=== PATIENT | male | born 1975 | race Caucasian/White ===

== ENCOUNTER 2020-06-12 14:00 | Outpatient (RCR) | payer BC, SELFPAY ==
[2020-06-10 14:27] VITALS: BP 132/82; PULSE 73; RESP 12; O2SAT 98
--- NOTE | 2020-06-10 16:10 | MHC.PT.EP ---
[facility] [place] Office [place] [facility] [place] Office [address] Harika Corcoran [address] [phone] F: [phone] F: [phone] F: [phone] F: [phone] Physical Therapy Plan of Care Date of Evaluation: 06/10/20 Date of Surgery: NA Diagnosis: This is a 45 yo male presenting to skilled PT with a script for vertigo. Assessment: This is a 45 yo male presenting to skilled PT with a script for vertigo. Symptoms have returned last night 06/09, he was nauseas and vomited. He describes his symptoms as room spinning. Reports nausea and vomiting. These symptoms last minutes. He states that positions that provoke his symptoms include turning his head fast. His symptoms did not occur at rest. The patient has not had any changes in his vision or hearing. He does have some neck pain that is mild. His level of function is limited with housework, yardwork and driving. 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 Examination demonstrated (+) for dizziness and nystagmus for BPPV in all 6 canals. We did not assess balance today due to nausea and + nystagmus. He would benefit from reassessment of PT. Educated patient on causes of dizziness, balance systems and vestibular anatomy with marketing strategy lead. He is a good candidate for skilled PT 2x/wk for 5wks. Frequency and Duration: The patient will be seen 2x/wk for 5wks Short Term Goals: Care Home Goals: For the patient to be negative for nystagmus or reports of vertigo in all diagnostic positions bilaterally to resolution of BPPV in 4 weeks. Patient will report no LOB with ambulation For the patient to be able to functionally move in all planes and directions without provocation of dizziness to show return to PLOF. Treatment Plan: Modalities to reduce pain, spasms and effusion. Manual therapy to restore motion and function. Therapeutic exercise to improve strength and flexibility. Neuromuscular re-education for posture and balance. Therapeutic activities to return to functional activities of daily living. Please sign and return to therapist. Thank you for your referral.
--- NOTE | 2020-07-12 10:38 | MHC.PT.DC ---
[facility] [place] Office [place] Office [place] Office [address] Harika Corcoran [address] [phone] F: [phone] F: [phone] F: [phone] F: [phone] Physical Therapy Discharge Report Diagnosis: This is a 45 yo male presenting to skilled PT with a script for vertigo. Date of Surgery: NA Date of Evaluation: 06/10/20 Date of Discharge: 07/12/20 Treatments to Date: 2 Cancellations to Date: 0 No Shows to Date: 0 Discharge Status: Achieved Goals Improved Function Independent with HEP Discharge Summary: Patient returns reporting feeling much better, he was not dizzy Wednesday night or the following 2 days. Educated on HEP as needed and to call and cxl appointment on wednesday if symptoms still did not return. He returned to work without symptoms. When I assessed all canals he was negative for dizziness and nystagmus B in all 6 at the last tx session which was 30 days ago. DC'd chart after 30 days Electronically signed by: Yojana Cadena PT Please sign and return to therapist. Thank you for your referral.
== END 2020-07-12 10:37 | disposition home or self-care (01) ==
LOC: HO.PTCHIC 14:00
PROVIDERS: PCP Nurse Practitioner Family; Visit Provider Nurse Practitioner Family
DX: R42 Dizziness and giddiness (principal)
CPT/HCPCS: 95992; 97161; 97530

== ENCOUNTER → 2020-09-02 13:07 | Outpatient (BNVA) | payer BC, SELFPAY | PROVIDERS: PCP Nurse Practitioner Family; Visit Provider Orthopaedic Surgery | DX: Z76.89 Persons encountering health services in other specified circumstances (principal) ==

== ENCOUNTER 2020-09-26 13:02 | Day surgery (SDC) | payer BC, SELFPAY ==
[2020-09-26 13:14] VITALS: BP 134/79; PULSE 92; RESP 16; TEMP 36.6; O2SAT 98; BMI 34.9
--- NOTE | 2020-09-26 15:03 | MHC.SHP ---
Pre-Procedural Eval Section B Chief Complaint: RTCTS Allergies: Allergies Allergy/AdvReac Type Severity Reaction Status Date / Time No Known Allergies Allergy Verified 09/25/20 12:14 Plan I have reviewed the history and physical and performed a pertinent physical examination on my patient. No changes have occurred unless specified.
--- NOTE | 2020-09-26 16:24 | P.OP_ITS ---
Operative Note Operative Note Date of Service: 09/26/20 Narrative: Preop diagnosis: 1. Right the Carpal tunnel syndrome Postop diagnosis: 1. Right Carpal tunnel syndrome Procedure: 1. Right Carpal tunnel release Surgeon: Iris Amaro MD Anesthesia: local block using 1% lidocaine with epinephrine Findings: Thickened transverse carpal ligament particularly in the palm EBL: Less than 5 mL Specimens: None Complications: None Disposition: Brought to recovery room in stable condition Plan: Follow-up for 7-10 days for wound check and suture removal Indications: The patient is 45 years old, with right carpal tunnel syndrome that has been unresponsive to nonoperative management. The risks and benefits of operative treatment including but not limited to risk of damage to blood vessels, nerves, tendons, infection, persistent pain, persistent symptoms, or possible need for additional surgery were discussed with the patient and the patient wishes to proceed with surgery. Procedure: Once consent was obtained a local block was performed using a com bination of 1% lidocaine with epinephrine. The patient was then brought back to the operating suite and placed on the operative table in supine position. A tourniquet was applied to the proximal aspect of the right upper extremity and the limb was prepped and draped in a standard surgical fashion. Once assured that we had a good block, a 1.5 cm longitudinal incision was made centered over the right carpal tunnel. The incision was made through the skin to the subcutaneous tissues using a #15 blade. Dissection was made down to the level of the transverse carpal ligament with care being taken to protect the palmar cutaneous nerve. Once the transverse carpal ligament was clearly visualized, a longitudinal incision was made in the transverse carpal ligament 1st using a #15 blade, then using tenotomy scissors under direct visualization. Care was taken to look for and protect the motor branch of the median nerve when seen in this area. Once satisfied with our carpal tunnel release the wound was copiously irrigated with normal saline and hemostasis was obtained with a brief period of local pressure. The skin edges were reapproximated with some 5.0 nylon suture material and a sterile dressing was applied. The patient appears to have tolerated the procedure well and with no complications. All digits were well vascularized at the conclusion of the case.
[2020-09-26 16:46] VITALS: PULSE 88; RESP 16; TEMP 36.2; O2SAT 100
== END 2020-09-26 17:09 | disposition home or self-care (01) ==
PROVIDERS: PCP Nurse Practitioner Family; Visit Provider Orthopaedic Surgery
PROC: (CPT 64721; principal; 2020-09-26 14:20)
DX: G56.01 Carpal tunnel syndrome, right upper limb (principal); I10 Essential (primary) hypertension; Z79.899 Other long term (current) drug therapy
CPT/HCPCS: 64721

== ENCOUNTER → 2020-10-04 09:28 | Outpatient (BNVA) | payer BC, SELFPAY | PROVIDERS: PCP Nurse Practitioner Family; Visit Provider Physician Assistant ==

== ENCOUNTER → 2020-10-14 08:33 | Outpatient (BNVA) | payer BC, SELFPAY | PROVIDERS: PCP Nurse Practitioner Family; Visit Provider Orthopaedic Surgery ==

== ENCOUNTER 2020-10-22 12:38 | Day surgery (SDC) | payer BC, SELFPAY ==
[2020-10-22 13:40] VITALS: BMI 35.5
[2020-10-22 13:46] VITALS: BP 134/73; PULSE 66; RESP 18; TEMP 36.4; O2SAT 99
--- NOTE | 2020-10-22 15:43 | W.PM.OPN ---
Operative Note Operative Note Date of Service: 10/22/20 Narrative: Preop diagnosis: 1. Left Carpal tunnel syndrome Postop diagnosis: 1. Left Carpal tunnel syndrome Procedure: 1. Left Carpal tunnel release Surgeon: Iris Amaro MD Anesthesia: local block using 1% lidocaine with epinephrine Findings: Thickened transverse carpal ligament. EBL: Less than 5 mL Specimens: None Complications: None Disposition: Brought to recovery room in stable condition Plan: Follow-up for 7-10 days for wound check and suture removal Indications: The patient is 45 years old, with left carpal tunnel syndrome that has been unresponsive to nonoperative management. The risks and benefits of operative treatment including but not limited to risk of damage to blood vessels, nerves, tendons, infection, persistent pain, persistent symptoms, or possible need for additional surgery were discussed with the patient and the patient wishes to proceed with surgery. Procedure: Once consent was obtained a local block was performed using a combination of 1% lidocaine with epinephrine. The patient was then brought back to the operating suite and placed on the operative table in supine position. A tourniquet was applied to the proximal aspect of the left upper extremity and the limb was prepped and draped in a standard surgical fashion. Once assured that we had a good block, a 1.5 cm longitudinal incision was made centered over the left carpal tunnel. The incision was made through the skin to the subcutaneous tissues using a #15 blade. Dissection was made down to the level of the transverse carpal ligament with care being taken to protect the palmar cutaneous nerve. Once the transverse carpal ligament was clearly visualized, a longitudinal incision was made in the transverse carpal ligament 1st using a #15 blade, then using tenotomy scissors under direct visualization. Care was taken to look for and protect the motor branch of the median nerve when seen in this area. Once satisfied with our carpal tunnel release the wound was copiously irrigated with normal saline and hemostasis was obtained with a brief period of local pressure. The skin edges were reapproximated with some 5.0 nylon suture material and a sterile dressing was applied. The patient appears to have tolerated the procedure well and with no complications. All digits were well vascularized at the conclusion of the case.
--- NOTE | 2020-10-22 15:44 | MHC.SHP ---
Pre-Procedural Eval Section B Chief Complaint: carpal tunnel Allergies: Allergies Allergy/AdvReac Type Severity Reaction Status Date / Time No Known Allergies Allergy Verified 10/22/20 13:39 Plan I have reviewed the history and physical and performed a pertinent physical examination on my patient. No changes have occurred unless specified.
[2020-10-22 16:55] VITALS: BP 124/75; PULSE 80; RESP 16; TEMP 36.3; O2SAT 100
[2020-10-22 17:12] VITALS: BP 115/75; PULSE 81; RESP 17; O2SAT 99
[2020-10-22 17:15] VITALS: BP 118/76; PULSE 82; RESP 16; O2SAT 100
== END 2020-10-22 17:15 | disposition home or self-care (01) ==
PROVIDERS: PCP Nurse Practitioner Family; Visit Provider Orthopaedic Surgery
PROC: (CPT 64721; principal; 2020-10-22 13:40)
DX: G56.02 Carpal tunnel syndrome, left upper limb (principal); G56.22 Lesion of ulnar nerve, left upper limb; I10 Essential (primary) hypertension; Z79.899 Other long term (current) drug therapy
CPT/HCPCS: 64721

== ENCOUNTER → 2020-10-30 09:46 | Outpatient (BNVA) | payer BC, SELFPAY | PROVIDERS: PCP Nurse Practitioner Family; Visit Provider Orthopaedic Surgery ==

== ENCOUNTER → 2020-11-19 09:01 | Outpatient (BNVA) | payer BC, SELFPAY | PROVIDERS: PCP Nurse Practitioner Family; Visit Provider Orthopaedic Surgery ==

== ENCOUNTER 2020-12-04 08:30 | Outpatient (RCR) | payer BC, SELFPAY ==
--- NOTE | 2020-11-07 15:48 | MHC.OT.OEV ---
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 He recently underwent R CTR on 09/26/20 and L CTR 10/22/20 with gradual improvements in median nerve symptoms. 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 Enjoys working on cars/household maintenance. Hoping to begin playing Correlor. Living Situation, Family and/or Social Support: Lives with fianc? and animals Current Level of Function and Occupation Self Care, Employment, Leisure: Ind with ADLs and IADLs, with pain. OOW since CTR in September 2020. Not working on cars/ completing hobbies since B/L CTR due to pain and limitations. Sleep: No disturbances with sleep; not wearing resting hand splints since B/L CTR. Driving: Mild discomfort with holding a steering wheel Pain Assessment Pain Score: 2 Pain Scale Used: Numeric (0 - 10) Pain Location and Description: R small finger pain Aggravating Factors: Lifting heavier items >5 pounds Alleviating Factors: Takes ibuprofen, stretches out, uses heat for pain Skin and Soft Tissue Assessment Skin and Soft Tissue: Scar Tissue Comments: R small finger posturing in flexion at rest; no muscle wasting noted in B/L thenar or hypothenar Healing L CTR incision, closed without sutures present with mild redness; Healed R CTR scar Nerve assessment Ulnar Nerve: Right Impaired Median Nerve: WFL Radial Nerve: Comments: (-) Froment's sign B/L Slight weakness with resisted R pinky adduction R Tinel's at ulnar wrist and elbow (-) mild tenderness at both sites Sensory Assessment Temperature: WFL Light Touch: B/L Impaired Proprioception: Vibration: Comments: [place] Andres: R thumb 4.31 (diminished light touch), IF, MF, RF, SF 3.61 (normal); L digits 3.61 (normal), L medial RF 4.31 (diminished light touch) Continue to assess with ongoing rx Edema Assessment Upper Extremity: WNL Lower Extremity: Comments: R wrist crease: 19.5 cm, MP circumference: 22.5 cm L wrist crease: 19.2 cm, MP circumference: 22.2 cm Dexterity Assessment Dexterity: B/L Impaired Comments: R hand 30.36 sec (moderately functional) L hand 29.52 + 1 drop, 39.52 sec (moderately functional) Special Tests Comments: (-) Froments sign B/L'ly AROM(PROM) Strength Elbow Flexion: Extension: Pronation: Supination: Comments: WFL Flexion: Extension: Pronation: Supination: Comments: Wrist Flexion: R 60, L 55 Extension: R 65, L 60 Ulnar Deviation: Radial Deviation: Comments: Flexion: Extension: Ulnar Deviation: Radial Deviation: Comments: Digits Index MCP: PIP: DIP: Long MCP: PIP: DIP: Ring MCP: PIP: DIP: Small MCP: PIP: DIP: Comments: WFL Gross Grasp: R 85 lbs, L 90 lbs Lateral Pinch: R 21, L 24 Two-Point Pinch: R 14, L 25 Three-Jaw Bennie: R 12, L 12 Comments: grasp pain in R ulnar wrist, R pain through carpal tunnel with lateral pinch Patient Education Primary Language: Latvian Real Estate Acquisition Analyst Required: No Current Knowledge: Understands information with skills for self-management Teaching Method: Demonstration Handouts Education Needs Identified on Evaluation: ADL's Disease Information Equipment Use Exercise Pain How did patient/family demonstrate learning? Patient demonstrates Patient verbalizes Barriers to Learning: None Readiness for Learning: Accepting Who was educated? Patient Comments: Plan of Care Assessment: Quentin is a 45 y/o male who has been experiencing B/L hand pain and paresthesia. He underwent B/L CTR with Dr. Amaro, which since has relieved symptoms in the median nerve distribution, however his symptoms in his small finger continue to cause pain and paresthesia. 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 He reports the pain in his R hand/small finger to be mild, with most pain during heavier lifting tasks or digit flexion and extension. At rest his R small finger postures in a flexed position. He reports feeling clumsy in both hands. He reports the R small finger has slowly been improving since his CTR, but is hopeful for full recovery before returning to work. He would benefit from skilled OT to address these limitations 2x/week for 4 weeks. STG Duration: 4 weeks Short Term Goals: Ind HEP Ind orthosis use and wear Ind activity modification and elbow protection Functional dexterity test grossly equal B/L'ly Improve R grasp to >100 pounds Report minimal pain with heavy lifting in the R hand >50 pounds Demo proper body mechanics with lifting tasks and work related activities Quick DASH <10 LTG Duration: see above Usp Goals: see above Frequency and Duration: The patient will be seen 2x/week for 4 weeks Treatment Plan: Therapeutic Exercise Therapeutic Activity Home Exercise Program Splinting Neuro Re-ed Patient Education Desensitization/Sensory Re-ed Edema Control ADL Training Ultrasound NMES Iontophoresis Paraffin Fluidotherapy MHP Cold Packs Joint Mobilization Soft Tissue Mobilization Kinesiotaping Electronically Signed By: Michelle Connolly OT/s Reviewed/agree with student documentation: Yes Therapist: Oly Gregory OTR/L Please sign and return to therapist, Thank you for your referral.
--- NOTE | 2020-12-05 08:07 | MHC.OT.DC ---
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 HE PARTICIPATED IN WORK CONDITIONING TASKS AND PLANS TO RETURN TO WORK NEXT WEEK. NO FURTHER OT WARRANTED AT THIS TIME. HE HAS GOOD UNDERSTANDING OF HIS HEP AND SELF MANAGEMENT. D/C OT SERVICES. Electronically Signed By: MILAN MOYER OTR/L Reviewed/agree with student documentation: N/A Therapist: Please Sign and return to therapist, thank you for your referral.
== END 2020-12-05 08:08 | disposition other institution (70) ==
LOC: HO.OT 08:30
PROVIDERS: PCP Nurse Practitioner Family; Visit Provider Orthopaedic Surgery
DX: G56.21 Lesion of ulnar nerve, right upper limb (principal); G56.22 Lesion of ulnar nerve, left upper limb; Z98.890 Other specified postprocedural states
CPT/HCPCS: 97035; 97110; 97112; 97140; 97166; 97530; 97760

== ENCOUNTER 2021-08-27 08:35 | Outpatient (REF) | payer BC, SELFPAY ==
[2021-08-27 11:25] LABS: Appearance Urine CLEAR; Color Urine YELLOW; Glucose Urine UA NEG (NEG); Leukocyte Esterase Urine NEG (NEG); Nitrite Urine NEG (NEG); Urine Blood NEG (NEG); Urine Ketones NEG (NEG); Urine Protein NEG (NEG-TRACE)
[2021-08-27 11:53] LABS: Alanine Aminotransferase 54 U/L (0-40); Albumin Level 4.4 g/dL (3.5-5.0); Alkaline Phosphatase 56 U/L (39-117); Anion Gap 12 (12-20); Aspartate Amino Transferase 33 U/L (5-37); Bilirubin Total 0.4 mg/dL (0.0-1.0); Blood Urea Nitrogen 21 mg/dL (9-16); Calcium 10.5 mg/dL (8.4-10.2); Carbon Dioxide 26 mmol/L (22-29); Chloride 103 mmol/L (96-108); Cholesterol 256 mg/dL; Estimated Glomerular Filt Rate > 60; Glucose Fasting 84 mg/dL (60-99); HDL Cholesterol 78 mg/dL; LDL Cholesterol Calculated 159 mg/dl; Potassium 4.1 mmol/L (3.3-5.1); Sodium 137 mmol/L (135-145); Total Protein 7.5 g/dL (6.5-8.0); Triglycerides 99 mg/dL
[2021-08-27 12:12] LABS: TSH reflex Free T4 1.61 uIU/mL (0.32-4.0)
== END 2021-08-27 08:36 | disposition home or self-care (01) ==
LOC: HO.HMGCLDS 08:35
PROVIDERS: PCP Nurse Practitioner Family; Visit Provider Nurse Practitioner Family
DX: Z00.00 Encounter for general adult medical examination without abnormal findings (principal)
CPT/HCPCS: 36415; 80053; 80061; 81003; 84443

== ENCOUNTER 2022-08-31 13:48 | Outpatient (REF) | payer BC, SELFPAY ==
[2022-08-31 16:40] LABS: MANUAL DIFF FLAG NO
[2022-08-31 16:44] LABS: Basophils Absolute Auto 0.1 X10*3/uL (0.0-0.2); Basophils Percent Auto 0.6 % (0-2); Eosinophils Absolute Auto 0.1 X10*3/uL (0.0-0.4); Eosinophils Percent Auto 1.3 % (0-4); Hematocrit 44.7 % (42.0-52.0); Hemoglobin 14.6 g/dl (14.0-18.0); Imm Gran Abs Auto 0.05 X10*3/uL (0.00-0.03); Imm Gran Pct Auto 0.5 % (0.0-0.4); Lymphocytes Absolute Auto 1.5 X10*3/uL (1.2-4.9); Lymphocytes Percent Auto 14.8 % (20-40); Mean Corpuscular HGB Conc 32.7 g/dl (31.0-36.0); Mean Corpuscular Hemoglobin 30.1 pg (27.0-33.0); Mean Corpuscular Volume 92.2 fL (80.0-98.0); Mean Platelet Volume 9.4 fL (9.4-12.4); Monocytes Absolute Auto 1.1 X10*3/uL (0.1-1.2); Monocytes Percent Auto 10.5 % (2-11); Neutrophils Absolute Auto 7.3 x10*3/uL (2.0-8.3); Neutrophils Percent Auto 72.3 % (45-73); Platelet Count 354 X10*3/uL (160-400); Red Blood Count 4.85 X10*6/uL (4.60-5.80); Red Cell Distribution Width 13.2 % (11.0-16.0)
[2022-08-31 17:04] LABS: Alanine Aminotransferase 72 U/L (0-40); Albumin Level 4.3 g/dL (3.5-5.0); Alkaline Phosphatase 62 U/L (39-117); Anion Gap 10 (12-20); Appearance Urine Clear; Aspartate Amino Transferase 32 U/L (5-37); Bilirubin Total 0.5 mg/dL (0.0-1.0); Blood Urea Nitrogen 11 mg/dL (9-16); Calcium 10.1 mg/dL (8.4-10.2); Carbon Dioxide 29 mmol/L (22-29); Chloride 102 mmol/L (96-108); Cholesterol 256 mg/dL; Color Urine Yellow; Estimated Glomerular Filt Rate > 60; Glucose Fasting 89 mg/dL (60-99); Glucose Urine UA Negative (Negative); HDL Cholesterol 73 mg/dL; LDL Cholesterol Calculated 150 mg/dl; Leukocyte Esterase Urine Negative (Negative); Nitrite Urine Negative (Negative); PH 6.5 (5.0-9.0); Potassium 4.5 mmol/L (3.3-5.1); Sodium 136 mmol/L (135-145); Total Protein 7.2 g/dL (6.5-8.0); Triglycerides 169 mg/dL; Urine Blood Negative (Negative); Urine Ketones Negative (Negative); Urine Protein Negative (Neg-Trace)
[2022-08-31 17:22] LABS: TSH reflex Free T4 1.52 uIU/mL (0.32-4.0)
== END 2022-08-31 13:49 | disposition home or self-care (01) ==
LOC: HO.HMGCLDS 13:48
PROVIDERS: PCP Nurse Practitioner Family; Visit Provider Nurse Practitioner Family
DX: I10 Essential (primary) hypertension (principal); E78.5 Hyperlipidemia, unspecified
CPT/HCPCS: 36415; 80053; 80061; 81003; 84443; 85025

== ENCOUNTER → 2022-10-14 07:32 | Outpatient (BNVA) | payer BC, SELFPAY | PROVIDERS: PCP Nurse Practitioner Family; Referring Provider Nurse Practitioner Family; Visit Provider Physician Assistant | DX: Z13.89 Encounter for screening for other disorder (principal) ==

== ENCOUNTER 2023-01-28 13:16 | Day surgery (SDC) | payer BC, SELFPAY ==
--- NOTE | 2023-01-27 12:56 | P.CONAN_ITS ---
Documented by User: Milagro Cotter NP 01/27/23 12:57 HPI - Anesthesia Eval Consult details Narrative: 47yo M for Colonoscopy PMFSH Active Problems Active Problems: All Active Problems (Updated 10/14/22 @ 08:00 by Malu Soto PA-C) Screening for colon cancer (Acute) Poison edie (Acute) Hypertension (Acute) Serum calcium elevated (Acute) Dyslipidemia (Acute) Physical exam (Acute) Poison edie (Acute) S/P carpal tunnel release (Acute) Cubital tunnel syndrome on right (Acute) Cubital tunnel syndrome on left (Acute) Carpal tunnel syndrome of right wrist (Acute) Carpal tunnel syndrome of left wrist (Acute) Vertigo (Acute) Past Medical History Medical History Dyslipidemia Hypercholesteremia Hypertension Tibial tendonitis, posterior Family History Family History Other Mental health disorder Substance use disorder Surgical History Surgical History History of carpal tunnel release (~09/26/20) History of cholecystectomy Social History Social History Housing: House Patient Tobacco Use Status: Never used Tobacco e-Cigarette/Vaping Use: Never Used Second Hand Smoke Exposure: No Are you DNR?: No Advance Directives: No Advance Directives Information Provided: Yes Nutrition Risks: No Nutritional Risk Current occupational status: employed 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 Cognitive needs: No Hearing needs: No Vision needs: No Meds Allergies Allergy/AdvReac Type Severity Reaction Status Date / Time No Known Allergies Allergy Verified 09/02/22 07:42 Home Medications Medication Instructions Recorded Confirmed Last Taken Type dextroamphetamine-amphetamine ER 1 cap PO QAM 09/02/22 09/02/22 Unknown History 20 mg 24hr capsule,extend release (Adderall XR) escitalopram oxalate 10 mg tablet 10 mg PO DAILY 09/02/22 09/02/22 Unknown History Exam Exam Date and Time: January 27, 2023 125 Pertinent Lab Results Pertinent Lab Results: Laboratory Tests 08/31/22 08/31/22 13:57 13:57 WBC 10.0 Hgb 14.6 Hct 44.7 Plt Count 354 Sodium 136 Potassium 4.5 Chloride 102 Carbon Dioxide 29 BUN 11 Creatinine 0.78 Assessment and Plan Assessment Anesthesia Assessment: Chart Reviewed Documented by User: Kaveh Medina MD 01/28/23 14:09 [facility] Past Medical History Medical History Dyslipidemia Hypercholesteremia Hypertension Tibial tendonitis, posterior Narrative: Denies JAMES, but he does snore. 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 Assessment and Plan Assessment Anesthesia Assessment: Anesthesia Plan Discussed Final Anesthetic Review Family History of Problems with Anesthesia: No History of Problems with Anesthesia: No NPO: Yes ASA Class: II Final Preanesthetic Review: No Changes in Pt Med Stat, Meds/Allgs Chart Reviewed, Consent Obtained/Reviewed and Anes Risks/Benef Reviewed Patient Risk: Intermediate Procedure Risk: Low Anesthetic Plan Anesthetic Plan: MAC: and Agree w/ Assess. and Plan Disposition: Standard PACU
[2023-01-28 13:29] VITALS: BMI 36.3
[2023-01-28] MEDS: Lactated Ringers 1,000 ML 100 ML IVCONT (13:33)
[2023-01-28 13:47] VITALS: BP 154/96; PULSE 78; RESP 18; TEMP 36.6; O2SAT 98
--- NOTE | 2023-01-28 14:05 | MHC.SHP ---
Pre-Procedural Eval Section A Date of Service: 01/28/23 Section B Chief Complaint: screening for malignant neoplasm of colon Relevant Family History (Specify if Yes): No Relevant Social History: None Present Medications: see Short Stay Collaborative assessment Medical History: Significant History (Dyslipidemia Hypercholesteremia Hypertension Tibial tendonitis, posterior) History of Previous Operations: Relevant previous surgery/procedure and date(s) (carpal tunnel ) Allergies: Allergies Allergy/AdvReac Type Severity Reaction Status Date / Time No Known Allergies Allergy Verified 09/02/22 07:42 Review of Systems Sugical H&P ROS: Negative: Constitution, Cardiovascular, Respiratory, Neurological, Psychiatric, Hem-Onc, Allergic/Immunologic, Gastrointestinal, Genitourinary, Musculoskeletal, Integumentary, Endocrine and Eyes/Ears/Nose/Throat Exam Surgical H&P Exam: Normal: HEENT, Normal: Heart, Normal: Lungs, Normal: Extremities, Normal: Abdomen, Normal: Skin and Normal: Neurological Plan Diagnosis/Plan: Unchanged I have reviewed the history and physical and performed a pertinent physical examination on my patient. No changes have occurred unless specified. Time Spent With Patient Time: Total time managing care of this patient today ____ minutes.
--- NOTE | 2023-01-28 14:41 | W.PM.OPN ---
Operative Note Operative Note Date of Service: 01/28/23 Narrative: Operative Information Procedure Description: Colonoscopy Indication: screening Anesthesia: MAC COLONOSCOPY Instrument: Olympus variable stiffness pediatric scope 190L Colonoscopy Monitoring: Vital signs and clinical assessment, continuous EKG monitoring, Pulse oximetry, Carbon Dioxide monitoring and blood pressure monitoring were done throughout the procedure. Colon withdrawal time was 8 minutes. Procedure: The patient was placed in the left lateral decubitis position and pre-procedure medications were administered. After a digital rectal examination of the ano-rectum, the video colonoscope was inserted into the rectum and advanced through the colon to the cecum/TI. The colonoscope was slowly withdrawn in a retrograde panoramic fashion and the colon mucosa was carefully examined including a retroflexed view of the rectum. Findings and interventions are described below. Procedure Difficulty: easy Findings: Terminal Ileum-normal Cecum: 5-7 mm sessile polyp removed with cold snare Ascending Colon: normal Transverse Colon -normal Descending Colon:normal Sigmoid Colon: normal Rectum: Retroflexion with small internal hemorrhoids, grade I Anorectum - normal Colon preparation: [place] Bowel Preparation Scale Right colon; 2 Transverse colon: 2 Left colon; 2 (0 = Unprepared colon segment with mucosa not seen due to solid stool that cannot be cleared. 1 = Portion of mucosa of the colon segment seen, but other areas of the colon segment not well seen due to staining, residual stool and/or opaque liquid. 2 = Minor amount of residual staining, small fragments of stool and/or opaque liquid, but mucosa of colon segment seen well. 3 = Entire mucosa of colon segment seen well with no residual staining, small fragments of stool or opaque liquid) Impression and Post Procedure Diagnosis: polyp internal hemorrhoids Plan: High fiber diet leaflet Avoid straining at stool, epsom salts and sitz bath, anusol supps or cream Repeat Colonoscopy in 5-7 years if adenomatous polyp, 10 yrs if lymphoid tissue etc or earlier if clinically indicated Above findings were reviewed with the patient and relevant handouts were provided if indicated.
[2023-01-28 14:44] VITALS: BP 141/86; PULSE 75; RESP 16; TEMP 36.7; O2SAT 98
[2023-01-28 14:59] VITALS: BP 152/85; PULSE 64; RESP 18; TEMP 37.2; O2SAT 99
== END 2023-01-28 15:52 | disposition home or self-care (01) ==
PROVIDERS: PCP Nurse Practitioner Family; Visit Provider Internal Medicine Gastroenterology
PROC: 0DJD8ZZ Inspection of Lower Intestinal Tract, Via Natural or Artificial Opening Endoscopic (ICD-10-PCS; CPT 45378; principal; 2023-01-28 14:30)
DX: Z12.11 Encounter for screening for malignant neoplasm of colon (principal); K63.5 Polyp of colon; K64.0 First degree hemorrhoids; I10 Essential (primary) hypertension; E78.00 Pure hypercholesterolemia, unspecified; Z79.899 Other long term (current) drug therapy; Z90.49 Acquired absence of other specified parts of digestive tract
CPT/HCPCS: 45385; 88305

== ENCOUNTER → 2023-02-11 08:43 | Outpatient (BNVA) | payer BC, SELFPAY | PROVIDERS: PCP Nurse Practitioner Family; Visit Provider Physician Assistant ==

== ENCOUNTER 2023-03-02 07:57 | Outpatient (AMB) | payer BC, SELFPAY ==
[2023-03-02 08:05] VITALS: BP 128/90; PULSE 78; O2SAT 98; BMI 37.6
--- NOTE | 2023-03-02 08:05 | A.OFFPC_ITS ---
Vital Signs 03/02/23 08:05 Height 5 ft 11 in Weight 269 lb 6 oz BMI 37.6 BP 128/90 H Blood Pressure Location Lt brachial Position Sitting Pulse 78 Pulse Source Pulse Oximeter Pulse Oximetry (%) 98 Oxygen Delivery Method Room Air Intake Visit Reasons: 6 Month follow up Allergies No Known Allergies Allergy (Verified 03/02/23 08:25) Medication List - Last Reconciled 03/02/23 by TOVA Sam dextroamphetamine-amphetamine 20 mg ER (Adderall XR) 1 cap PO QAM escitalopram oxalate 10 mg PO DAILY hydrochlorothiazide 25 mg PO DAILY lisinopril 20 mg PO DAILY rosuvastatin 10 mg PO DAILY 90 days Tobacco use date assessed: 03/02/23 Dental Screening Dental Screen Date: 03/02/23 Did you have a dental visit in the last 12 months?: No Did you have a dental problem in the last 6 months where you did not have access to dental care?: No Was dental information given to patient?: Patient has dentist HPI 6 Month follow up HPI Details Dyslipidemia: Pt was started on rosuvastatin 10mg previously. He has not had repeat labs, will reorder. HTN: Blood pressure is managed with hydrochlorothiazide 25mg and lisinopril 20mg. Will have pt monitor his blood pressure at home and record readings. Denies chest pain, shortness of breath, headache, dizziness, and blurred vision. 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 Vince Pate, Krupa Glass, Roc Londono and colleagues, with an educational omega from [employer]. Review of Systems Const Reports as per HPI Physical exam (Primary Care) Vital Signs: Last Vital Signs Pulse 78 03/02/23 08:05 BP 128/90 H 03/02/23 08:05 Pulse Ox 98 03/02/23 08:05 Oxygen Delivery Method Room Air 03/02/23 08:05 BMI result Body Mass Index 37.6 Tobacco/Smoking Status: Tobacco use Status Tobacco use date assessed 03/02/23 03/02/23 08:11 Patient Tobacco Use Status Never used Tobacco 03/02/23 08:07 e-Cigarette/Vaping Use Never Used 03/02/23 08:07 Thrive Assessment: Date of Thrive Assessment Date Thrive assessed 09/02/22 03/02/23 08:07 Const General: cooperative Nutritional Appearance: obese Orientation/consciousness: patient oriented x3 Resp Effort & Inspection: normal respiratory effort Auscultation: clear to auscultation bilaterally Cardio Rate: regular rate Rhythm: regular rhythm Heart sounds: S1 normal heart sound present and S2 normal heart sound present Neuro General: patient oriented x3 Extrem Right lower extremity: no edema Left lower extremity: no edema Psych Appearance: grossly normal Mental Status: mental status grossly normal Speech and movement: Normal speech and movement present Affect: normal affect Attitude: cooperative Thought process: Normal thought process present Thought content: Normal thought content present Insight: Good insight present (Psych) Judgement: Good judgement present (Psych) Assessment and Plan Assessment & Plan (1) Hypertension: Code(s): I10 - Essential (primary) hypertension Plan: Monitor BP at home (2) Dyslipidemia: Code(s): E78.5 - Hyperlipidemia, unspecified Plan The patient agreed to the use of a dental assistant medical assistant for this encounter. Scribed for TOVA Amos by Nicole Corona dental assistant medical assistant, on 03/02/2023 at 08:10 EST. Orders: Orders Comprehensive [place]. Panel Fast Today E78.5 - Hyperlipidemia, unspecified Lipid Panel Today E78.5 - Hyperlipidemia, unspecified Complete Blood Count Auto Diff Today E78.5 - Hyperlipidemia, unspecified Coding Level of Care Code Est Pt Level 3 (55220) Diagnoses Hypertension I10 Dyslipidemia E78.5
== END 2023-03-02 08:20 | disposition home or self-care (01) ==
PROVIDERS: Visit Provider Nurse Practitioner Family
DX: I10 Essential (primary) hypertension (principal); E78.5 Hyperlipidemia, unspecified
CPT/HCPCS: 99213

== ENCOUNTER 2024-01-03 09:35 | Outpatient (REF) | payer BC, SELFPAY ==
[2024-01-03 13:27] LABS: MANUAL DIFF FLAG NO
[2024-01-03 13:53] LABS: Basophils Absolute Auto 0.1 X10*3/uL (0.0-0.2); Basophils Percent Auto 1.4 % (0-2); Eosinophils Absolute Auto 0.2 X10*3/uL (0.0-0.4); Eosinophils Percent Auto 2.2 % (0-4); Hematocrit 43.7 % (42.0-52.0); Hemoglobin 14.5 g/dl (14.0-18.0); Imm Gran Abs Auto 0.03 X10*3/uL (0.00-0.03); Imm Gran Pct Auto 0.4 % (0.0-0.4); Lymphocytes Absolute Auto 1.8 X10*3/uL (1.2-4.9); Lymphocytes Percent Auto 24.2 % (20-40); Mean Corpuscular HGB Conc 33.2 g/dl (31.0-36.0); Mean Corpuscular Hemoglobin 30.3 pg (27.0-33.0); Mean Corpuscular Volume 91.2 fL (80.0-98.0); Mean Platelet Volume 9.4 fL (9.4-12.4); Monocytes Percent Auto 13.7 % (2-11); Neutrophils Absolute Auto 4.2 x10*3/uL (2.0-8.3); Neutrophils Percent Auto 58.1 % (45-73); Platelet Count 316 X10*3/uL (160-400); Red Blood Count 4.79 X10*6/uL (4.60-5.80); Red Cell Distribution Width 13.2 % (11.0-16.0); White Blood Count 7.2 X10*3/uL (4.8-10.8)
[2024-01-03 14:16] LABS: Alanine Aminotransferase 52 U/L (0-40); Albumin Level 4.3 g/dL (3.5-5.0); Alkaline Phosphatase 56 U/L (39-117); Anion Gap 16 (12-20); Aspartate Amino Transferase 33 U/L (5-37); Bilirubin Total 0.4 mg/dL (0.0-1.0); Blood Urea Nitrogen 12 mg/dL (9-16); Calcium 10.3 mg/dL (8.4-10.2); Carbon Dioxide 26 mmol/L (22-29); Chloride 103 mmol/L (96-108); Cholesterol 206 mg/dL (<200); Estimated Glomerular Filt Rate > 60; Glucose Fasting 94 mg/dL (60-99); HDL Cholesterol 68 mg/dL (>40); LDL Cholesterol Calculated 120 mg/dL (<100); Potassium 5.1 mmol/L (3.3-5.1); Sodium 140 mmol/L (135-145); Total Protein 7.8 g/dL (6.5-8.0); Triglycerides 91 mg/dL (<150)
== END 2024-01-03 09:36 | disposition home or self-care (01) ==
LOC: HO.HMGCLDS 09:35
PROVIDERS: PCP Nurse Practitioner Family; Visit Provider Nurse Practitioner Family
DX: E78.5 Hyperlipidemia, unspecified (principal)
CPT/HCPCS: 36415; 80053; 80061; 85025

== ENCOUNTER 2024-01-10 11:58 | Outpatient (AMB) | payer BC, SELFPAY ==
--- NOTE | 2024-01-10 12:33 | MHC.PC.OV ---
Vital Signs 01/10/24 12:36 Height 5 ft 11 in Weight 278 lb BMI 38.8 BP 122/80 Blood Pressure Location Rt brachial Position Sitting Pulse 71 Pulse Source Pulse Oximeter Pulse Oximetry (%) 97 Oxygen Delivery Method Room Air Intake Visit Reasons: Annual PE Intake Note: Patient here for physical exam. Colonoscopy:2022 Allergies No Known Allergies Allergy (Verified 01/10/24 12:38) Medication List - Last Reconciled 01/10/24 by TOVA Sam dextroamphetamine-amphetamine 20 mg ER (Adderall XR) 1 cap PO QAM escitalopram oxalate 10 mg PO DAILY hydrochlorothiazide 25 mg PO DAILY lisinopril 20 mg PO DAILY rosuvastatin 10 mg PO DAILY 90 days Tobacco use date assessed: 01/10/24 Dental Screening Dental Screen Date: 01/10/24 Did you have a dental visit in the last 12 months?: No Did you have a dental problem in the last 6 months where you did not have access to dental care?: No Was dental information given to patient?: Patient has dentist HPI Annual PE HPI Details Pt is here for a PE. Labs were already performed. Colon screen is up to date. 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 1. Little interest or pleasure in doing things: not at all 2. Feeling down, depressed, or hopeless: not at all 3. Trouble falling or staying asleep, or sleeping too much: not at all 4. Feeling tired or having little energy: not at all 5. Poor appetite or overeating: not at all 6. Feeling bad about yourself - or that you are a failure or have let yourself or your family down: not at all 7. Trouble concentrating on things, such as reading the newspaper or watching television: not at all 8. Moving or speaking so slowly that other people could have noticed. Or the opposite - being so fidgety or restless that you have been moving around a lot more than usual: not at all 9. Thoughts that you would be better off or of hurting yourself in some way: not at all Total score: 0 Depression Screening Interpretation: Negative Depression Screening Done: Yes 86196 - PHQ-9 Billing: Yes Source: Developed by Drs. Vince Pate, Krupa Glass, Roc Londono and colleagues, with an educational omega from [employer] Thrive Questionnaire Date Thrive assessed: 01/10/24 I am a: Patient What is your living situation today?: I have a steady place to live Within the past 12 months, did the food you bought not last and you didn't have the money to get more?: Never true Within the past 12 months, did you worry whether your food would run out before you got money to buy more?: Never true Do you have trouble paying for medicines?: No Do you have trouble getting transportation to medical appointments?: No Do you have trouble paying your heating and electricity bill?: No Do you have trouble taking care of your child, family member or friend?: No Do you have trouble with day-to-day activities such as bathing, preparing meals, shopping, managing finances, etc.?: No Are you currently unemployed and looking for a job?: Yes Are you interested in more education?: No Currently or been in a relationship where the following occur: I choose not to answer this question THRIVE Score: 0 AUDIT C Alcohol Use Questionnaire (AUDIT-C) 1. How often do you have a drink containing alcohol?: Monthly or less 2. How many drinks containing alcohol do you have on a typical day when you are drinking?: 1 or 2 3. How often do you have six or more drinks on one occasion?: Never Total Score: 1 Score Reviewed/Action Taken: No RENE-7 AMB Questionnaire RENE-7 Date RENE - 7 assessed: 01/10/24 Feeling nervous, anxious, or on edge: 0 = Not at all Not being able to stop or control worryin = Not at all Worrying too much about different things: 0 = Not at all Trouble relaxin = Not at all Being so restless that it is hard to sit still: 0 = Not at all Becoming easily annoyed or irritable: 0 = Not at all Feeling afraid as if something awful might happen: 0 = Not at all Total RENE-7 score (0-4 normal; 5-9 mild; 10-14 moderate; 15-21 severe): 0 Source: Developed by Drs. Vince Pate, Krupa Glass, Roc Londono and colleagues, with an educational omega from [employer] RENE-7 Assessment Billing RENE-7 Assessment Tool: RENE-7 Assessment 49802 Review of Systems Const Denies chills and Denies fever(s) Eyes Denies blurry vision ENT Denies vertigo, Denies dizziness and Denies sore throat Card Denies chest pain at rest, Denies chest pain with activity, Denies diaphoresis, Denies dyspnea and Denies dyspnea on exertion Resp Denies cough, Denies dyspnea, Denies dyspnea on exertion and Denies wheezing GI Denies abdominal pain, Denies melena, Denies hematochezia, Denies constipation, Denies diarrhea and Denies loose stools Denies hematuria Musc Denies numbness and Denies tingling Skin/Breast Denies lesions Neuro Denies vertigo, Denies dizziness, Denies numbness and Denies tingling Psych Denies anxiety, Denies depression, Denies homicidal ideation, Denies suicidal ideation and Denies other (substance abuse) Aller/Immun Denies wheezing Physical exam (Primary Care) Vital Signs: Last Vital Signs Pulse 71 01/10/24 12:36 BP 122/80 01/10/24 12:36 Pulse Ox 97 01/10/24 12:36 Oxygen Delivery Method Room Air 01/10/24 12:36 BMI result Body Mass Index 38.8 Tobacco/Smoking Status: Tobacco use Status Tobacco use date assessed 01/10/24 01/10/24 12:39 Patient Tobacco Use Status Never used Tobacco 01/10/24 12:35 e-Cigarette/Vaping Use Never Used 01/10/24 12:35 PHQ-9: PHQ-9 Score PHQ-9: Total score 0 01/10/24 12:41 Depression Screening Interpretation: Negative Thrive Assessment: Date of Thrive Assessment Date Thrive assessed 01/10/24 01/10/24 12:41 Currently or been in a relationship where the following occur: I choose not to answer this question Const General: cooperative Nutritional Appearance: obese Orientation/consciousness: patient oriented x3 HENMT Head: Yes normal to inspection, Yes normocephalic and Yes atraumatic Ears: TM's normal bilaterally Eyes General: appearance normal, both eyes and all related structures Alignment and Position: alignment normal and position normal Neck Neck: Yes normal visual inspection and Yes no lymphadenopathy Thyroid: Thyroid normal Resp Effort & Inspection: normal respiratory effort Auscultation: clear to auscultation bilaterally Cardio Rate: regular rate Rhythm: regular rhythm Heart sounds: S1 normal heart sound present, S2 normal heart sound present and no murmurs GI Palpation (GI): Soft to palpation and nontender Auscultation: normal bowel sounds Male General Exam: Yes normal external exam Penis: normal penis Scrotum: scrotum normal, testes descended bilaterally and no inguinal hernias Testes: no testicular mass Skin Rashes: no rashes Neuro General: patient oriented x3, moves all extremities, no focal motor deficits and deep tendon reflexes 2+ bilaterally Romberg Test: Negative Psych Appearance: grossly normal Mental Status: mental status grossly normal Speech and movement: Normal speech and movement present Affect: normal affect Attitude: cooperative Thought process: Normal thought process present Thought content: Normal thought content present Insight: Good insight present (Psych) Judgement: Good judgement present (Psych) Assessment and Plan Assessment & Plan (1) Physical exam: Code(s): Z00.00 - Encounter for general adult medical examination without abnormal findings Plan: Labs already performed Plan The patient agreed to the use of a medical customer service representative for this encounter. Scribed for TOVA Amos by natalia Waters scribe, on 01/10/2024 at 12:45 EST. Coding Level of Care Code Est Pt Prev Care 40-64y(95123) Diagnoses Physical exam Z00.00 Additional Codes RENE-7 Assessment Billing - RENE-7 Assessment Tool: RENE-7 Assessment 53129 ([id number])
[2024-01-10 12:36] VITALS: BP 122/80; PULSE 71; O2SAT 97; BMI 38.8
== END 2024-01-10 12:56 | disposition home or self-care (01) ==
PROVIDERS: PCP Nurse Practitioner Family; Visit Provider Nurse Practitioner Family
DX: Z00.00 Encounter for general adult medical examination without abnormal findings (principal)
CPT/HCPCS: 99396

== ENCOUNTER 2025-01-31 13:02 | Outpatient (AMB) | payer BC, SELFPAY ==
--- NOTE | 2025-01-31 13:13 | MHC.PC.OV ---
Vital Signs 01/31/25 13:18 Height 5 ft 11 in Weight 291 lb BMI 40.6 BP 128/80 Blood Pressure Location Rt brachial Position Sitting Pulse 86 Pulse Source Pulse Oximeter Pulse Oximetry (%) 98 Oxygen Delivery Method Room Air Intake Visit Reasons: ANNUAL PE Admissions Evaluator Required: No Accompanied by: Self / Same As Patient Allergies No Known Allergies Allergy (Verified 01/31/25 13:14) Tobacco use date assessed: 01/31/25 Dental Screening Dental Screen Date: 01/31/25 Did you have a dental visit in the last 12 months?: No Did you have a dental problem in the last 6 months where you did not have access to dental care?: No Was dental information given to patient?: Patient declined HPI ANNUAL PE HPI Details History of Present Illness The patient is a 49-year-old male presenting for an initial consultation and evaluation. He states that he is here for the first time for a medical examination. He denies having symptoms such as chest pain, shortness of breath, and diarrhea. The patient also denies any current suicidal or homicidal ideation. Morbid obesity is acknowledged during the visit; however, further details regarding its onset, progression, or management were not provided. There were no additional symptoms noted in relation to his obesity during this visit. Health Maintenance Social History Review of Systems - Cardiovascular: Denies chest pain. - Respiratory: Denies shortness of breath. - Gastrointestinal: Denies diarrhea. - Psychiatric: Denies suicidal ideation, denies homicidal ideation. Physical Exam General: Cooperative, healthy appearing, comfortable, no acute distress and well developed Orientation: Patient oriented x3 Limitations: No limitations Head: Normal to inspection Ears: Hearing grossly normal bilaterally Nose: Normal external nose present Eyes: Appearance normal, both eyes and all related structures Neck: Normal visual inspection and Yes full ROM Respiratory: Normal respiratory effort and able to speak in complete sentences. Clear to auscultation bilaterally Cardiovascular: Regular rate and rhythm. Normal S1 and S2 GI: Normal to inspection. Soft to palpation and nontender : testicles without masses/lesions and no hernias appreciated Skin: acne lesions to face Neuro: Patient oriented x3 Extremities: Normal to inspection Results Plan No specific plans or treatments were discussed during this initial consultation for morbid obesity. The patient?s lack of symptoms such as chest pain, shortness of breath, or gastrointestinal disturbances was noted. There were no discussions regarding weight management strategies or further diagnostic evaluations in this initial visit. 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 1. Little interest or pleasure in doing things: not at all 2. Feeling down, depressed, or hopeless: not at all 3. Trouble falling or staying asleep, or sleeping too much: not at all 4. Feeling tired or having little energy: not at all 5. Poor appetite or overeating: not at all 6. Feeling bad about yourself - or that you are a failure or have let yourself or your family down: not at all 7. Trouble concentrating on things, such as reading the newspaper or watching television: not at all 8. Moving or speaking so slowly that other people could have noticed. Or the opposite - being so fidgety or restless that you have been moving around a lot more than usual: not at all 9. Thoughts that you would be better off or of hurting yourself in some way: not at all Total score: 0 Depression Screening Interpretation: Negative Depression Screening Done: Yes 85564 - PHQ-9 Billing: Yes Source: Developed by Drs. Vince Pate, Krupa Glass, Roc Londono and colleagues, with an educational omega from [employer]. Thrive Questionnaire Date Thrive assessed: 01/31/25 I am a: Patient What is your living situation today?: I have a steady place to live Within the past 12 months, did the food you bought not last and you didn't have the money to get more?: Never true Within the past 12 months, did you worry whether your food would run out before you got money to buy more?: Never true Do you have trouble paying for medicines?: No Do you have trouble getting transportation to medical appointments?: No Do you have trouble paying your heating and electricity bill?: No Do you have trouble taking care of your child, family member or friend?: No Do you have trouble with day-to-day activities such as bathing, preparing meals, shopping, managing finances, etc.?: No Are you currently unemployed and looking for a job?: No Are you interested in more education?: No Please select the resources that you would like help with: None Currently or been in a relationship where the following occur: No concerns reported THRIVE Score: 0 AUDIT C Alcohol Use Questionnaire (AUDIT-C) 1. How often do you have a drink containing alcohol?: 2-4 times a month 2. How many drinks containing alcohol do you have on a typical day when you are drinking?: 1 or 2 3. How often do you have six or more drinks on one occasion?: Less than monthly Total Score: 3 Score Reviewed/Action Taken: Yes RENE-7 AMB Questionnaire RENE-7 Date RENE - 7 assessed: 01/31/25 Feeling nervous, anxious, or on edge: 0 = Not at all Not being able to stop or control worryin = Not at all Worrying too much about different things: 0 = Not at all Trouble relaxin = Not at all Being so restless that it is hard to sit still: 0 = Not at all Becoming easily annoyed or irritable: 0 = Not at all Feeling afraid as if something awful might happen: 0 = Not at all Total RENE-7 score (0-4 normal; 5-9 mild; 10-14 moderate; 15-21 severe): 0 Source: Developed by Drs. Vince Pate, Krupa Glass, Roc Londono and colleagues, with an educational omega from [employer]. RENE-7 Assessment Billing RENE-7 Assessment Tool: RENE-7 Assessment 17065 Physical exam (Primary Care) Vital Signs: Last Vital Signs Pulse 86 01/31/25 13:18 BP 128/80 01/31/25 13:18 Pulse Ox 98 01/31/25 13:18 Oxygen Delivery Method Room Air 01/31/25 13:18 BMI result Body Mass Index 40.6 Tobacco/Smoking Status: Tobacco use Status Tobacco use date assessed 01/31/25 01/31/25 13:20 Patient Tobacco Use Status Never used Tobacco 01/31/25 13:13 e-Cigarette/Vaping Use Never Used 01/31/25 13:13 PHQ-9: PHQ-9 Score PHQ-9: Total score 0 01/31/25 13:20 Depression Screening Interpretation: Negative Thrive Assessment: Date of Thrive Assessment Date Thrive assessed 01/31/25 01/31/25 13:20 Currently or been in a relationship where the following occur: No concerns reported Coding Level of Care Code Est Pt Prev Care 40-64y(41991) Diagnoses Physical exam Z00. Screening PSA (prostate specific antigen) Z12.5 Additional Codes RENE-7 Assessment Billing - RENE-7 Assessment Tool: RENE-7 Assessment 89346 ([id number]) PHQ-9 - 78997 - PHQ-9 Billing: Yes ([id number]) Assessment & Plan Assessment & Plan (1) Physical exam: Code(s): Z00.00 - Encounter for general adult medical examination without abnormal findings Category: Medical (2) Screening PSA (prostate specific antigen): Code(s): Z12.5 - Encounter for screening for malignant neoplasm of prostate Category: Medical Plan . Orders: Orders Complete Blood Count Auto Diff Today Z00.00 - Encounter for general adult medical examination without abnormal findings Lipid Panel Today Z00.00 - Encounter for general adult medical examination without abnormal findings Comprehensive [place]. Panel Fast Today Z00.00 - Encounter for general adult medical examination without abnormal findings TSH reflex Free T4 Today Z00.00 - Encounter for general adult medical examination without abnormal findings UA CC w/rflx Micro + Cult Today Z00.00 - Encounter for general adult medical examination without abnormal findings Prostate Specific Antigen Scr Today Z12.5 - Encounter for screening for malignant neoplasm of prostate
[2025-01-31 13:18] VITALS: BP 128/80; PULSE 86; O2SAT 98; BMI 40.6
== END 2025-01-31 13:40 | disposition home or self-care (01) ==
LOC: HO.HMCC 13:04
PROVIDERS: PCP Nurse Practitioner Family; Visit Provider Nurse Practitioner Family
DX: Z00.00 Encounter for general adult medical examination without abnormal findings (principal); Z12.5 Encounter for screening for malignant neoplasm of prostate

== ENCOUNTER → 2025-01-31 13:02 | Outpatient (BNVA) | payer BC, SELFPAY | PROVIDERS: PCP Nurse Practitioner Family; Visit Provider Nurse Practitioner Family | DX: Z00.00 Encounter for general adult medical examination without abnormal findings (principal); E66.01 Morbid (severe) obesity due to excess calories; Z68.41 Body mass index [BMI] 40.0-44.9, adult | CPT/HCPCS: 96127 ==